=== PATIENT | male | born 1950 | race African-American/Black ===

== ENCOUNTER 2017-07-07 19:26 | Emergency (ER) | payer OTHER ==
[~2017-07-07] VITALS: Ht 182.9 cm; Wt 68.0 kg
[2017-07-07] MEDS ORDERED: AVALIDE 300-121 EACH PO (19:58)
[2017-07-07] MEDS ORDERED: LIPITOR10 MG PO (19:58)
[2017-07-07] MEDS ORDERED: AMLODIPINE BESY10 MG PO (19:58)
[2017-07-07] MEDS ORDERED: ASPIR 8181 MG PO (19:59)
[2017-07-07] MEDS ORDERED: TOPROL XL100 MG PO (19:59)
[2017-07-07] MEDS ORDERED: OSELB75 PO (20:26)
== END 2017-07-07 20:49 | disposition home or self-care (01) ==
LOC: ER 19:26
DX: J09.X2 Influenza due to identified novel influenza A virus with other respiratory manifestations (principal); F17.210 Nicotine dependence, cigarettes, uncomplicated

== ENCOUNTER 2019-05-27 05:59 | Day surgery (SDC) | payer OTHER ==
[~2019-05-27] VITALS: Ht 182.9 cm; Wt 65.8 kg
--- NOTE | ~2019-05-27 | O ---
[facility] [place] [address] OPERATIVE REPORT Name: BASSAM DAVILA Room #: 150-2 [facility].#: [id number] Admission: 05/27/19 Attend Phys: Osman Be MD Discharge: Date of : 46 Report #: [id number] THIS REPORT FOR: //name// cc: Oscar Casas David J. DO ~ THIS REPORT FOR: //name// CC: Oscar Be DATE OF SERVICE: 05/27/2019 PREOPERATIVE DIAGNOSIS: Hoarseness with left true vocal cord lesion. POSTOPERATIVE DIAGNOSIS: Hoarseness with left true vocal cord lesion. OPERATIVE PROCEDURE: Microdirect laryngoscopy with biopsy of left true vocal cord. ANESTHESIA: General endotracheal. DESCRIPTION OF PROCEDURE: The patient was taken to the operating room and placed in supine position. General anesthesia was induced by endotracheal intubation. Once adequate general anesthesia was obtained, laryngoscope was passed through the patient's oral cavity and oropharynx into the larynx where it was suspended. The microscope was brought in and the glottic larynx was visualized. The patient had a fleshy exophytic lesion of the left vocal cord. Multiple biopsies were taken with cup forceps and hemostasis was achieved with cocaine solution. The laryngoscope was then removed. The patient tolerated the procedure well. There was no blood loss. The patient was then awoken and taken to the recovery room in stable condition for postoperative monitoring. By: 0803 08 Osman Be MD /chris
--- NOTE | ~2019-05-27 | EKG ---
[facility] [place] [facility] [place] [address] ELECTROCARDIOGRAM REPORT Name: ALAN DAVILADEEPTHI Sam Room #: [facility]-[address] [place] [address] M.R.#: [id number] Admission: 05/27/19 Attend Phys: Osman Be MD Discharge: Date of : 46 Report #: [id number] THIS REPORT FOR: cc: Oscar Casas David J. DO Epiphany, Epiphany MD ~ THIS REPORT FOR: //name// [facility] Test Date: 2019-05-27 Test Time: 06:41:27 Pat Name: BASSAM DAVILA Department: Room: [facility] Gender: M Geography Head: emmett : 1950 Requested By: Osman Be Order Number: [id number] MD: Measurements Intervals Jenner Rate: 60 P: 71 ME: 152 QRS: 56 QRSD: 78 T: 49 QT: 396 QTc: 396 Interpretive Statements Sinus rhythm Baseline wander in lead(s) V3 No previous ECG available for comparison [email or web address] By: [id number] Epiphany EpiphanyMD /EPI
--- NOTE | ~2019-05-27 | H ---
[facility] [place] [address] HISTORY AND PHYSICAL Name: BASSAM DAVILA Room #: PRE [facility] M.R.#: [id number] Admission: Attend Phys: Osman Be MD Discharge: Date of : 46 Report #: [id number] THIS REPORT FOR: //name// CC: Oscar Be PREOPERATIVE HISTORY AND PHYSICAL HISTORY OF PRESENT ILLNESS: His procedure is scheduled for 05/27/2019. The patient has been having problems with his voice over the last 3 months. He has difficulty speaking. He does not have difficulty with his swallowing or breathing. He smokes a lot of cigars and has done so for many years. PAST MEDICAL HISTORY: Otherwise, significant for high blood pressure. MEDICATIONS: Includes metoprolol, hydrochlorothiazide, atorvastatin, amlodipine and aspirin. ALLERGIES: He has no known drug allergies. PHYSICAL EXAMINATION: His nose is clear. His oropharynx and oral cavity were clear. He had no adenopathy or masses in his neck and nasal laryngoscopy was performed, which shows a red fleshy appearing left vocal cord along the entire length of the vocal cord. IMPRESSION: Left true vocal cord lesion causing hoarseness. PLAN: Microdirect laryngoscopy with biopsy. By: [id number] Osman Be MD /nt
[~2019-05-27 05:59] MED LIST: AMLODIPINE BESY10 MG PO; ASPIR 8181 MG PO; AVALIDE 300-121 EACH PO; LIPITOR10 MG PO; OSELB75 PO; TOPROL XL100 MG PO
[2019-05-27 06:59] LABS: ANION GAP 17 mmol/L (7-16); BUN 33 mg/dL (7-18); CALCIUM 9.3 mg/dL (8.5-10.1); CHLORIDE 101 mmol/L (98-107); CO2 20 mmol/L (21-32); GLUCOSE 118 mg/dL (74-106); POTASSIUM 3.9 mmol/L (3.5-5.1); SODIUM 138 mmol/L (136-145)
[2019-05-27 07:05] LABS: ALBUMIN 4.5 g/dL (3.4-5.0); SGOT < 5 U/L (15-37); SGPT 26 U/L (30-65); TOTAL PROTEIN 7.7 g/dL (6.4-8.2)
[2019-05-27 07:11] VITALS: BP 140/70
[2019-05-27 08:31] VITALS: BP 140/70
--- NOTE | 2019-05-31 12:07 | PATH ---
[facility] [address] [place] [address] PATHOLOGY RPT PROCEDURE Name: BASSAM CONTRERAS Room #: DEP [facility] M.R.#: [id number] Admission: 05/27/19 Date of : 46 Discharge: 05/27/19 Report #: [id number] Path Case #: [id number] [facility] Accession Number: [id number] . 01 Material submitted: . larynx - LEFT TRUE VOCAL CORD LESION. Modifiers: left . 01 Clinical history: . Hoarseness and vocal cord lesion . 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 . (Please see comment) . (GLENYS:pamela; 05/30/2019) S 05/30/2019 1118 Local . 02 Comment: This case has also been reviewed by Dr. Viktor Sultana M.D., who agrees with the diagnosis. . The findings in this case were discussed with Dr. Osman Be on 05/30/2019. . A p16 immunoperoxidase stain will be performed on the tumor in this case to check for HPV. The results will be issued in an addendum report. (SKM:pamela; 05/30/2019) . 02 Addendum: . The tumor cells present in this left true vocal cord lesion biopsy are focally positive for p16, a marker for HPV infection. . (SKM:pamela; 05/31/2019) . . Professional services performed by [employer] at [facility], [address] [place] [address] [employer], [place] [address]. Technical services performed by [employer] at [address] [place] [address], [address], [place] [address]. S/05/31/2019 Addendum Electronically Signed by Tacos Tan MD, Pathologist . 02 Electronically signed: . Tacos Tan MD, Pathologist NPI- [id number] . 01 [facility] [address] [place] [address] PATHOLOGY RPT PROCEDURE Name: BASSAM CONTRERAS Room #: DEP [facility].#: [id number] Admission: 05/27/19 Date of : 46 Discharge: 05/27/19 Report #: [id number] Path Case #: [id number] Gross description: . The specimen is received in formalin, labeled "Bassam Contreras, left true vocal cord lesion". Received are five segments of pale pineda soft tissue ranging in size from 0.3 to 0.6 cm in maximum dimensions. The specimen is submitted entirely in cassette A1. (CAA; 05/27/2019) QAC/QAC 05/27/2019 1704 Local . 02 Pathologist provided ICD-10: C32.0 . 02 CPT . 141625 Specimen Comment: A courtesy copy of this report has been sent to [phone] Specimen Comment: [phone] Specimen Comment: Report sent to and Specimen Comment: A duplicate report has been generated due to demographic updates. Performed at: [address], [place] [id number] MD Black Camacho MD Phone: [phone] Performed at: [address] [id number] MD Mi Bartlett MD Phone: [phone]
== END 2019-05-27 09:05 | disposition home or self-care (01) ==
LOC: OR 05:59 → TBA 06:00 → OR 06:20
PROVIDERS: Otolaryngology
DX: C32.0 Malignant neoplasm of glottis (principal); R49.0 Dysphonia; I10 Essential (primary) hypertension; E78.5 Hyperlipidemia, unspecified; D64.9 Anemia, unspecified; K21.9 Gastro-esophageal reflux disease without esophagitis; F17.210 Nicotine dependence, cigarettes, uncomplicated; Z98.890 Other specified postprocedural states; Z79.899 Other long term (current) drug therapy; Z79.82 Long term (current) use of aspirin
CPT/HCPCS: 50010; 50101; 62110; 62900; 70005